=== PATIENT | female | born 1945 | race Caucasian/White ===

== ENCOUNTER → 2017-08-29 | Outpatient (CLI) | payer MEDICARE, OTHER ==
[~2017-08-29] MED LIST: ACE325 PO; ACET-1966 PO; ACY30T TP; ACYC5CRE6 TP; ALE10 PO; ALE70 PO; ALP25 PO; ALPR-448 PO; AMLO-99 PO; AMO250 PO; ASC500 PO; ASCO100T PO; ASPI-1471 PO; ASPI81TA94 PO; ATE50 PO; ATEN-1 PO; ATOR10TA65 PO; AZIT-1 PO; BACDS PO; BENZ100C4 PO; CEP500 PO; DILT240C4 PO; DILT300C41 PO; DILT360C49 PO; DUL20 PO; DULO30CA6 PO; FLU45SYR17 IM; FLU45SYR25 IM ONLY; FOLTX PO; FURO-1 PO; GABA-549 PO; HYDR-2946 PO; HYDR-2966 PO; HYDR-385 PO; HYDR-4309 PO; HYDR-6018 TP; IBUP-56 PO; IRO150 PO; LEV75 PO; LEVO-3 PO; LEVO100T95 PO; LIDO10VI16 INSYN; LOR5/325 PO; LOSA100T67 PO; LOSA100T68 PO; MAGN250T29 PO; MAGN250T34 PO; MET500 PO; METF-410 PO; METF-420 PO; MULT-820 PO; OLME40TA17 PO; OMEP-125 PO; OMEP40CA48 PO; ONDA8TAB91 PO; PER PO; PRA20 PO; PRAM15FO9 TP; PRED20TA6 PO; SPIR1TAB26 PO; SPIR1TAB28 PO; SPIR25TA78 PO; TRAM-420 PO; TRI40I IART; VENL37.53 PO; [UNRECOGNIZED DRUG - CODE] PO; [UNRECOGNIZED DRUG - CODE] PO; [UNRECOGNIZED DRUG - CODE] PO
[2017-08-29 11:02] LABS: PLATELET COUNT, AUTOMATED 333 K/uL (150-450)
--- NOTE | 2017-08-29 14:08 | RADIOLOGY IMAGING REPORT ---
FACILITY: [facility] PATIENT NAME: Crystal Herzog : 1945 MR: [id number] V: [id number] EXAM DATE: ORDERING PHYSICIAN: CAROLINE EDWARDS TECHNOLOGIST: Location: [facility] [place] Patient: Crystal Herzog : 1945 Visit/Account:[id number] Date of Sevice: 08/29/2017 Exam type: VENOUS DOPP LOW LEFT EXTREMITY History: Left knee pain and swelling Comparison: None. Findings: The left lower extremity veins were imaged including the left common femoral vein, greater saphenous vein, popliteal vein, posterior tibial vein, peroneal vein and anterior tibial veins revealing no christie dence of intraluminal thrombi. The veins were compressible and demonstrated normal augmentation. IMPRESSION: 1. No sonographic evidence DVT involving the left lower extremity veins Report Dictated By: Richelle Costello MD at 08/29/2017 2:03 PM Report E-Signed By: Richelle Costello MD at 08/29/2017 2:04 PM WSN:[email or web address]
== END ==
LOC: LAB 10:40
PROVIDERS: ATTEND Orthopaedic Surgery Hand Surgery
DX: M25.562 Pain in left knee (principal); M25.462 Effusion, left knee
CPT/HCPCS: 36415; 85025

== ENCOUNTER → 2017-09-06 | Outpatient (CLI) | payer MEDICARE, OTHER ==
[2017-09-06 09:39] LABS: PLATELET COUNT, AUTOMATED 297 K/uL (150-450)
[2017-09-06 10:24] LABS: LDL CHOLESTEROL 36 mg/dl
--- NOTE | 2017-09-09 12:26 | RADIOLOGY IMAGING REPORT ---
FACILITY: [facility] PATIENT NAME: BRIDGET CHASE : [id number] MR: [id number] V: [id number] EXAM DATE: ORDERING PHYSICIAN: CRUZITO IGNACIO TECHNOLOGIST: Kristen sOorio EXAMINATION:TWO-DIMENSIONAL ECHOCARDIOGRAPH REASON:LOWER EXTREMITY EDEMA 2D Measurements (normal values in centimeters) LV endLV endRV endVent.LV PostAorticLeftPercent DiastolicSystolicDiastolicSeptumWallRootAtriumShortening (3.5-5.7)(0.9-2.6)(0.6-1.1)(0.6-1.1)(2.0-3.7)(1.9-4.0)(25-35%) [id number] STROKE VOLUME: 57ml ESTIMATED EJECTION FRACTION:59% PARASTERNAL LONG AXIS: Overall left ventricular systolic function appears to be normal & chamber sizes also appear to be normal. Color examination of the valves revealed only a trace of mitral insufficiency in this view. Aortic valve & mitral valve were not seen well but appear to open normally. PARASTERNAL SHORT AXIS: Aortic valve is trileaflet in configuration & appears to open normally. Trace of pulmonic insufficiency is noted. The overall left ventricular systolic function appears to be normal. APICAL FOUR AND TWO CHAMBER: Normal left ventricular ejection fraction. The right ventricle also appears to contract normally. The color examination reveals a trace of mitral, aortic & pulmonic insufficiency present. Aortic valve area & mitral valve area both measure within normal ranges at 1.98 & 2.14cm2 respectively. The tricuspid regurgitation Vmax measured 2.92m/sec. Left atrial & right atrial volumes were measured within normal ranges at 22 &15ml/m2. TAPSE is measured at 1.8. SUBCOSTAL VIEW: No pericardial effusion was noted. No atrioseptal or ventriculoseptal defects were appreciated. Doppler examination of the mitral valve in diastole does reveal the A wave > E wave. IVC is normal in size. OVERALL IMPRESSION: 1. Normal left ventricular ejection fraction of 59% with a Grade 1/4 decrease in diastolic function. 2. There are normal chamber sizes. 3. No wall motion abnormalities are noted. 4. A trileaflet aortic valve with a trace of aortic insufficiency. 5. There is a trace amount of pulmonic insufficiency. 6. A trace amount of mitral insufficiency. No stenosis is noted. 7. A trace amount of tricuspid insufficiency with estimated right ventricular systolic pressures at the upper range of normal at 37mm Hg. 8. No other abnormalities were noted. Dictated by: Fanta Lorenz M.D. on 09/06/2017 at 12:57 Transcribed by: CHRISTO on 09/09/2017 at 11:15 Approved by: Fanta Lorenz M.D. on 09/09/2017 at 12:24 [facility]
== END ==
LOC: US 00:28
PROVIDERS: ATTEND Family Medicine
DX: I50.30 Unspecified diastolic (congestive) heart failure (principal); I35.1 Nonrheumatic aortic (valve) insufficiency; I37.1 Nonrheumatic pulmonary valve insufficiency; I07.1 Rheumatic tricuspid insufficiency; R60.0 Localized edema; E11.9 Type 2 diabetes mellitus without complications; E03.9 Hypothyroidism, unspecified; I10 Essential (primary) hypertension; E66.9 Obesity, unspecified; E78.00 Pure hypercholesterolemia, unspecified
CPT/HCPCS: 36415; 82040; 82247; 82310; 82374; 82435; 82465; 82565; 82947; 83036; 83718; 84075; 84132; 84155; 84295; 84443; 84450; 84460; 84478; 84520; 85025; 93306

== ENCOUNTER → 2018-02-07 | Outpatient (CLI) | payer MEDICARE, OTHER ==
[~2018-02-07] MED LIST changes: +ALPR-429 PO; +BIOT250012 PO; -METF-410 PO; +METF-411 PO; -SPIR25TA78 PO; +SPIR25TA80 PO
== END ==
LOC: LAB 09:11
PROVIDERS: ATTEND Emergency Medicine
DX: E11.9 Type 2 diabetes mellitus without complications (principal); G62.9 Polyneuropathy, unspecified
CPT/HCPCS: 36415; 82607; 83036

== ENCOUNTER → 2018-05-05 | Outpatient (CLI) | payer MEDICARE, OTHER ==
[~2018-05-05] MED LIST changes: +AMLO-113 PO; -AMLO-99 PO; +CYAN20004 PO; -HYDR-4309 PO; +HYDR-653 PO; -LOSA100T67 PO; +LOSA100T69 PO; -METF-411 PO; +METF-450 PO; +SITA50TA6 PO
== END ==
LOC: LAB 15:57
PROVIDERS: ATTEND Emergency Medicine
DX: E11.9 Type 2 diabetes mellitus without complications (principal); E53.8 Deficiency of other specified B group vitamins
CPT/HCPCS: 36415; 82607; 83036

== ENCOUNTER 2018-05-28 14:24 | Emergency (ER) | payer MEDICARE, OTHER ==
[~2018-05-28 14:24] MED LIST changes: +CYA1000 PO
--- NOTE | 2018-05-28 14:38 | ER Report ---
History and Physical Time Seen By MD: 14:37 Hx. of Stated Complaint: anxiety, chest pain, shaking. HPI/ROS CHIEF COMPLAINT: Anxiety chest pain HISTORY OF PRESENT ILLNESS: 73-year-old female suffers from anxiety and hypert ension comes in with a blood pressure 171/101 patient states that this is high for her since she didn't check Throughout the day has been noting getting higher also says she feels shaky short of breath and feels that she's having a panic attack which she has had numerous in the past patient had a mild episode of chest pain and not associated lasted several minutes and subsequently resolved without intervention patient's currently chest pain-free at this time patient says she feels shaky jittery and feels very anxious last bowel movement was yesterday where she's had a small bowel movement but she has no abdominal pain or discomfort no nausea vomiting or diarrhea no additional complaints noted a mild nonproductive cough for the last couple weeks REVIEW OF SYSTEMS: Respiratory: Cough no shortness of breath Cardiovascular: Chest pain has resolved otherwise unremarkable Gastrointestinal: No vomiting, no abdominal pain. Musculoskeletal: No back pain. Remainder of the 14 system rev: Yes Allergies: Coded Allergies: piroxicam (Verified Allergy, Severe, SWELLING, RASH, 06/18/12) amlodipine (Verified Allergy, Intermediate, Leg swelling, 09/10/17) azithromycin (Unverified Allergy, Mild, headache, 01/15/14) cephalexin (Verified Allergy, Mild, 01/15/14) acetaminophen (Verified Adverse Reaction, Severe, 03/07/16) hydrocodone (Verified Adverse Reaction, Severe, 03/07/16) lorcaserin (Unverified Adverse Reaction, Intermediate, Dizzy, loss of balance, 01/27/14) aspirin (Unverified Adverse Reaction, Mild, Nosebleeds, 01/27/14) clarithromycin (Verified Adverse Reaction, Unknown, 06/18/12) Uncoded Allergies: CANTALOPE (Allergy, Intermediate, ITHCHY THROAT, 07/14/12) CRAB (Allergy, Intermediate, RASH, 07/14/12) Home Meds Active Scripts Sitagliptin Phosphate (JANUVIA) 50 Mg Tablet, 50 MG PO QDAY, #90 TAB 0 Refills Prov:PATRICIA TAVARES MD 05/07/18 Hydrochlorothiazide (HYDROCHLOROTHIAZIDE) 25 Mg Tablet, 1 TAB PO QDAY, #30 TAB 11 Refills Prov:PATRICIA TAVARES MD 05/07/18 Losartan Potassium (LOSARTAN POTASSIUM) 100 Mg Tablet, 1 TAB PO QDAY, #90 TAB 3 Refills Prov:PATRICIA TAVARES MD 02/28/18 Atorvastatin Calcium (ATORVASTATIN CALCIUM) 10 Mg Tablet, 1 TAB PO QDAY, #90 TAB 3 Refills TAKE ONE TABLET BY MOUTH ONCE A DAY AT BED TIME Prov:PATRICIA TAVARES MD 02/28/18 Alprazolam (XANAX) 0.5 Mg Tablet, 1 TAB PO PRN for Anxiety, #30 TAB Prov:PATRICIA TAVARES MD 02/07/18 Levothyroxine Sodium (LEVOTHYROXINE SODIUM) 100 Mcg Tablet, 1 TAB PO QDAY, #90 TAB 4 Refills Prov:CRUZITO IGNACIO MD 12/10/17 Metformin Hcl (METFORMIN HCL) 500 Mg Tablet, 2 TAB PO BID for 90 Days, #360 TAB 4 Refills Prov:CRUZITO IGNACIO MD 09/04/17 Diltiazem Hcl (DILTIAZEM 24HR CD) 240 Mg Cap.er.24h, 1 CAP PO DAILY for 90 Days, #90 CAP.SR.24H 4 Refills Prov:CRUZITO IGNACIO MD 09/02/17 Reported Medications Cyanocobalamin (Vitamin B-12) (VITAMIN B-12) 1,000 Mcg Tablet, 1000 MCG PO DAILY 05/09/18 Aspirin (ASPIR 81) 81 Mg Tablet.dr, 81 MG PO QDAY, TAB 02/07/18 Biotin (BIOTIN) 2,500 Mcg Capsule, 5000 MCG PO DAILY, CAPSULE 10/15/17 Magnesium Oxide (MAGNESIUM) 250 Mg Tablet, 250 MG PO 07/09/14 Cholecalciferol (Vitamin D3) (VITAMIN D3) 1,000 Unit Tablet, 1000 UNIT PO DAILY 07/14/12 Multivitamins (Multivitamin) 1 Tab Tablet, 1 TAB PO QDAY 07/07/10 Reviewed Nurses Notes: Yes Old Medical Records Reviewed: Yes Hx Smoking: No Smoking Status: Never Smoker Hx Substance Use Disorder: No Hx Alcohol Use: No Constitutional Vital Sign - Last 24 Hours 05/28/18 14:32 Temp 98.1 Pulse 78 Resp 22 B/P (MAP) 178/101 Pulse Ox 95 O2 Delivery Room Air Physical Exam General Appearance: The patient is alert, has no immediate need for airway protection and no current signs of toxicity. [ ] Eyes: Pupils equal and round no injection. Respiratory: Chest is non tender, lungs are clear to auscultation. Cardiac: regular rate and rhythm [ ] Gastrointestinal: Abdomen is soft and non tender, no masses, bowel sounds normal. Musculoskeletal: Neck: Neck is supple and non tender. Extremities have full range of motion and are non tender. Skin: No rashes or lesions. [ ] DIFFERENTIAL DIAGNOSIS: After history and physical exam differential diagnosis was considered for anxiety panic attack chest pain pulmonary emboli myocardial infarction upper respiratory infection Medical Decision Making Data Points Result Diagram: 05/28/18 1444 05/28/18 1444 Laboratory Hematology Test 05/28/18 14:44 05/28/18 14:49 Red Blood Count 5.01 M/uL (4.17-5.56) Mean Corpuscular Volume 88.1 fL (80.0-96.0) Mean Corpuscular Hemoglobin 29.0 pg (26.0-33.0) Mean Corpuscular Hemoglobin Concent 33.0 g/dL (32.0-36.0) Red Cell Distribution Width 15.2 % (11.5-14.5) Mean Platelet Volume 7.9 fL (7.2-11.1) Neutrophils (%) (Auto) 68.6 % (39.4-72.5) Lymphocytes (%) (Auto) 20.7 % (17.6-49.6) Monocytes (%) (Auto) 6.3 % (4.1-12.4) Eosinophils (%) (Auto) 3.5 % (0.4-6.7) Basophils (%) (Auto) 0.9 % (0.3-1.4) Nucleated RBC Relative Count (auto) 0.1 /100WBC Neutrophils # (Auto) 6.4 K/uL (2.0-7.4) Lymphocytes # (Auto) 1.9 K/uL (1.3-3.6) Monocytes # (Auto) 0.6 K/uL (0.3-1.0) Eosinophils # (Auto) 0.3 K/uL (0.0-0.5) Basophils # (Auto) 0.1 K/uL (0.0-0.1) Nucleated RBC Absolute Count (auto) 0.01 K/uL D-Dimer Quantitative (PE/DVT) 0.39 ug/ml (0-0.50) Sodium Level 140 mmol/L (137-145) Potassium Level 3.3 mmol/L (3.5-5.0) Chloride Level 100 mmol/L (98-107) Carbon Dioxide Level 27 mmol/L (22-31) Blood Urea Nitrogen 17 mg/dl (7-18) Creatinine 0.60 mg/dl (0.52-1.04) Glomerular Filtration Rate Calc > 60.0 Random Glucose 194 mg/dl (75-110) Calcium Level 9.8 mg/dl (8.4-10.2) Total Bilirubin 0.4 mg/dl (0.2-1.3) Aspartate Amino Transf (AST/SGOT) 23 U/L (0-35) Alanine Aminotransferase (ALT/SGPT) 19 U/L (0-56) Alkaline Phosphatase 63 U/L (0-126) Troponin I < 0.012 ng/ml B-Type Natriuretic Peptide 96 pg/ml (0-100) Total Protein 7.7 g/dl (6.3-8.2) Albumin 4.5 g/dl (3.5-5.0) Urine Color Colorless Urine Clarity Clear Urine pH 7.0 pH (4.8-9.5) Urine Specific [place] 1.003 Urine Protein Negative mg/dL (NEGATIVE) Urine Glucose (UA) Negative mg/dL (NEGATIVE) Urine Ketones Negative mg/dL (NEGATIVE) Urine Blood Negative (NEGATIVE) Urine Nitrite Negative (NEGATIVE) Urine Bilirubin Negative (NEGATIVE) Urine Urobilinogen Negative mg/dL (0.2-1.9) Urine Leukocyte Esterase Negative (NEGATIVE) Urine RBC None /HPF (0-2/HPF) Urine WBC None /HPF (0-5/HPF) Urine Squamous Epithelial Cells Few /LPF (</=FEW) Urine Bacteria Negative /HPF (NONE-FEW) Urine Mucus None /HPF (NONE-FEW) Chemistry Test 05/28/18 14:44 05/28/18 14:49 White Blood Count 9.3 k/uL (4.5-11.0) Red Blood Count 5.01 M/uL (4.17-5.56) Hemoglobin 14.5 g/dL (12.0-16.0) Hematocrit 44.1 % (34.0-47.0) Mean Corpuscular Volume 88.1 fL (80.0-96.0) Mean Corpuscular Hemoglobin 29.0 pg (26.0-33.0) Mean Corpuscular Hemoglobin Concent 33.0 g/dL (32.0-36.0) Red Cell Distribution Width 15.2 % (11.5-14.5) Platelet Count 269 K/uL (150-450) Mean Platelet Volume 7.9 fL (7.2-11.1) Neutrophils (%) (Auto) 68.6 % (39.4-72.5) Lymphocytes (%) (Auto) 20.7 % (17.6-49.6) Monocytes (%) (Auto) 6.3 % (4.1-12.4) Eosinophils (%) (Auto) 3.5 % (0.4-6.7) Basophils (%) (Auto) 0.9 % (0.3-1.4) Nucleated RBC Relative Count (auto) 0.1 /100WBC Neutrophils # (Auto) 6.4 K/uL (2.0-7.4) Lymphocytes # (Auto) 1.9 K/uL (1.3-3.6) Monocytes # (Auto) 0.6 K/uL (0.3-1.0) Eosinophils # (Auto) 0.3 K/uL (0.0-0.5) Basophils # (Auto) 0.1 K/uL (0.0-0.1) Nucleated RBC Absolute Count (auto) 0.01 K/uL D-Dimer Quantitative (PE/DVT) 0.39 ug/ml (0-0.50) Glomerular Filtration Rate Calc > 60.0 Calcium Level 9.8 mg/dl (8.4-10.2) Total Bilirubin 0.4 mg/dl (0.2-1.3) Aspartate Amino Transf (AST/SGOT) 23 U/L (0-35) Alanine Aminotransferase (ALT/SGPT) 19 U/L (0-56) Alkaline Phosphatase 63 U/L (0-126) Troponin I < 0.012 ng/ml B-Type Natriuretic Peptide 96 pg/ml (0-100) Total Protein 7.7 g/dl (6.3-8.2) Albumin 4.5 g/dl (3.5-5.0) Urine Color Colorless Urine Clarity Clear Urine pH 7.0 pH (4.8-9.5) Urine Specific [place] 1.003 Urine Protein Negative mg/dL (NEGATIVE) Urine Glucose (UA) Negative mg/dL (NEGATIVE) Urine Ketones Negative mg/dL (NEGATIVE) Urine Blood Negative (NEGATIVE) Urine Nitrite Negative (NEGATIVE) Urine Bilirubin Negative (NEGATIVE) Urine Urobilinogen Negative mg/dL (0.2-1.9) Urine Leukocyte Esterase Negative (NEGATIVE) Urine RBC None /HPF (0-2/HPF) Urine WBC None /HPF (0-5/HPF) Urine Squamous Epithelial Cells Few /LPF (</=FEW) Urine Bacteria Negative /HPF (NONE-FEW) Urine Mucus None /HPF (NONE-FEW) Coagulation Test 05/28/18 14:44 D-Dimer Quantitative (PE/DVT) 0.39 ug/ml Urinalysis Test 05/28/18 14:49 Urine Color Colorless Urine Clarity Clear Urine pH 7.0 pH (4.8-9.5) Urine Specific [place] 1.003 Urine Protein Negative mg/dL (NEGATIVE) Urine Glucose (UA) Negative mg/dL (NEGATIVE) Urine Ketones Negative mg/dL (NEGATIVE) Urine Blood Negative (NEGATIVE) Urine Nitrite Negative (NEGATIVE) Urine Bilirubin Negative (NEGATIVE) Urine Urobilinogen Negative mg/dL (0.2-1.9) Urine Leukocyte Esterase Negative (NEGATIVE) Urine RBC None /HPF (0-2/HPF) Urine WBC None /HPF (0-5/HPF) Urine Squamous Epithelial Cells Few /LPF (</=FEW) Urine Bacteria Negative /HPF (NONE-FEW) Urine Mucus None /HPF (NONE-FEW) ED Course/Re-evaluation ED Course ED clinical course medical decision making 73-year-old female comes emergency Department with a complaint of panic attack her EKG chest x-ray baseline labs including cardiac markers all negative she's had no pain on arrival no pain since she's been here with a milligram of Ativan her symptoms of completely resolved she's been intermittently on benzodiazepines for anxiety and control of her panic attack a long discussion with her about the frequency of this she had been recently taken off of daily when necessary dosing with exacerbation dosing as well will encourage her she has some at home and I'll give her a prescription for a couple days worth to resume her benzodiazepine mild dose for control and have her follow-up with primary care diagnosis panic attack Decision to Disposition Date: May 28, 2018 Decision to Disposition Time: 16:13 Depart Departure Latest Vital Signs Vital Signs Date Time Temp Pulse Resp B/P (MAP) Pulse Ox O2 Delivery O2 Flow Rate FiO2 05/28/18 14:32 98.1 78 22 178/101 95 Room Air Impression: Primary Impression: Panic attack Condition: Improved Disposition: HOME OR SELF-CARE Referrals: PATRICIA TAVARES MD (PCP) 2 Days Patient Instructions: Panic Attack (ED), Panic Disorder (DC) MIGUEL A MONTANEZ MD May 28, 2018 14:38
[2018-05-28] MEDS ORDERED: LORazepam 2 MG/ML VIAL IVP ONE (14:40)
--- NOTE | 2018-05-28 14:42 | EKG ---
FACILITY: [facility] PATIENT NAME: BRIDGET CHASE : [id number] MR: [id number] V: [id number] EXAM DATE: ORDERING PHYSICIAN: MIGUEL A MONTANEZ TECHNOLOGIST: LIDIA Connors Reason : CARDIAC Blood Pressure : / mmHG Vent. Rate : 071 BPM Atrial Rate : 071 BPM P-R Int : 162 ms QRS Dur : 086 ms QT Int : 396 ms P-R-T Axes : -11 -20 063 degrees QTc Int : 430 ms Sinus rhythm Left axis Artifact in several leads - repeat ifd needed Abnormal ECG Confirmed by YOLI RANDOLPH ([id number]) on 05/28/2018 4:02:28 PM Referred By: TARIK Confirmed By:YOLI RANDOLPH
[2018-05-28 14:55] LABS: PLATELET COUNT, AUTOMATED 269 K/uL (150-450)
[2018-05-28] MEDS ORDERED: cloNIDine HCL 0.1 MG TAB PO ONE (15:05)
--- NOTE | 2018-05-28 16:07 | RADIOLOGY IMAGING REPORT ---
FACILITY: [facility] [place] PATIENT NAME: Crystal Herzog : 1945 MR: [id number] V: [id number] EXAM DATE: ORDERING PHYSICIAN: MIGUEL A MONTANEZ TECHNOLOGIST: Location: [facility] Patient: Crystal Herzog : 1945 Visit/Account:[id number] Date of Sevice: 05/28/2018 2 VIEWS CHEST INDICATION: Chest pain and bloating COMPARISON: Examination chest July 09, 2012 FINDINGS: Heart size within normal limits. Lungs are clear without focal infiltrate, failure, effusion or pneumothorax. No evidence of acute bon y finding. ] IMPRESSION: 1. No acute cardiopulmonary process. Report Dictated By: Miguel A Weinstein MD at 05/28/2018 4:02 PM Report E-Signed By: Miguel A Weinstein MD at 05/28/2018 4:03 PM WSN:[email or web address]
--- NOTE | 2018-05-28 16:09 | RADIOLOGY IMAGING REPORT ---
FACILITY: [facility] PATIENT NAME: Crystal Herzog : 1945 MR: [id number] V: [id number] EXAM DATE: ORDERING PHYSICIAN: MIGUEL A MONTANEZ TECHNOLOGIST: Location: [facility] - [place], [place] Patient: Crystal Herzog : 1945 Visit/Account:[id number] Date of Sevice: 05/28/2018 KUB SINGLE VIEW ABDOMEN HISTORY: pain and bloating COMPARISON: None. FINDINGS: Limited by body habitus. Nonobstructive pattern without evidence of free air or pneumatosis. Moderate amount of colonic stool. Levoscoliotic curvature with multilevel spondylosis most notable lower lumb ar spine. No acute bony finding. IMPRESSION: Nonobstructive bowel pattern. No evidence of acute pathology. Report Dictated By: Miguel A Weinstein MD at 05/28/2018 4:03 PM Report E-Signed By: Miguel A Weinstein MD at 05/28/2018 4:05 PM WSN:[email or web address]
[2018-05-28 16:15] VITALS: BP 129/75
[2018-05-30] MEDS ORDERED: SPIR25TA80 PO (11:01)
[2018-05-30] MEDS ORDERED: HYDR-2966 PO (11:01)
== END 2018-05-28 16:20 | disposition home or self-care (01) ==
LOC: ER 14:54
DX: F41.0 Panic disorder [episodic paroxysmal anxiety] (principal)
CPT/HCPCS: 71046; 74018; 81001; 83880; 84484; 85025; 85379; 93005; 96374; 99284; J2060; 82040; 82247; 82310; 82374; 82435; 82565; 82947; 84075; 84132; 84155; 84295; 84450; 84460; 84520

== ENCOUNTER 2018-06-30 10:16 | Outpatient (RCR) | payer MEDICARE, OTHER ==
[~2018-06-30 10:16] MED LIST changes: -AMLO-113 PO; +AMLO-127 PO; -LOSA100T69 PO; +LOSA100T75 PO
--- NOTE | 2018-06-30 15:10 | RADIOLOGY IMAGING REPORT ---
FACILITY: [facility] PATIENT NAME: Crystal Herzog : 1945 MR: [id number] V: [id number] EXAM DATE: ORDERING PHYSICIAN: PATRICIA TAVARES TECHNOLOGIST: Location: [facility] [place] Patient: Crystal Herzog : 1945 Visit/Account:[id number] Date of Sevice: 06/30/2018 Exam type: US VENOUS LOWER EXT LT History: leg pain Comparison: August 29, 2017. Findings: The left lower extremity veins were imaged including the left common femoral vein, greater saphenous vein, superficial femoral vein, popliteal vein, posterior tibial vein, peroneal vein and anterior tib ial vein revealing no evidence of intraluminal thrombi. The veins were compressible and demonstrated augmentation. Incidentally noted is a 4.4 x 2 x 1.6 cm complex fluid collection in the left popliteal fossa IMPRESSION: 1. No sonographic evidence DVT involving the left lower extremity veins Probable left popliteal cyst Report Dictated By: Richelle Costello MD at 06/30/2018 3:04 PM Report E-Signed By: Richelle Costello MD at 06/30/2018 3:06 PM WSN:[email or web address]
[2018-06-30] MEDS ORDERED: TRAM-420 PO (15:28)
--- NOTE | 2018-07-03 17:13 | RADIOLOGY IMAGING REPORT ---
FACILITY: [facility] [place] PATIENT NAME: BRIDGET CHASE : [id number] MR: [id number] V: [id number] EXAM DATE: ORDERING PHYSICIAN: PATRICIA TAVARES TECHNOLOGIST: Mily Zhou PROCEDURE:BILATERAL DIGITAL SCREENING MAMMOGRAM WITH CAD ASSISTED INTERPRETATION & 3D TOMOSYNTHESIS COMPARISON:Prior mammograms 05/29/17, 04/10/16, 04/05/15, 03/30/14, 03/23/13, 03/19/12. INDICATIONS:SCREENING FINDINGS: The breasts are almost entirely fatty. The parenchymal pattern has remained stable allowing for difference in mammographic technique & patient positioning. DIAGNOSTIC CATEGORY 1--NEGATIVE. RECOMMENDATIONS: ROUTINE MAMMOGRAM AND CLINICAL EVALUATION. IMPRESSION: BIRADS 1: Negative. No significant abnormality is seen. Dictated by: Richelle Costello M.D. on 07/02/2018 at 15:50 Transcribed by: NILTON on 07/02/2018 at 16:04 Approved by: Richelle Costello M.D. on 07/03/2018 at 17:12 [facility]
== END 2018-07-02 18:00 | disposition home or self-care (01) ==
LOC: US 10:16 → EDSTATUS 07-02 10:15 → US 07-02 18:00
PROVIDERS: ATTEND Emergency Medicine
DX: Z12.31 Encounter for screening mammogram for malignant neoplasm of breast (principal); M79.605 Pain in left leg
CPT/HCPCS: 77063; 77067

== ENCOUNTER → 2018-12-30 | Outpatient (CLI) | payer MEDICARE, OTHER ==
[~2018-12-30] MED LIST changes: -OMEP-125 PO; +OMEP-126 PO; +SULF-198 PO
[2018-12-30 08:45] LABS: PLATELET COUNT, AUTOMATED 385 K/uL (150-450)
[2018-12-30 09:24] LABS: LDL CHOLESTEROL 65 mg/dl
== END ==
LOC: LAB 08:24
PROVIDERS: ATTEND Emergency Medicine
DX: I10 Essential (primary) hypertension (principal); E11.9 Type 2 diabetes mellitus without complications; E03.9 Hypothyroidism, unspecified
CPT/HCPCS: 36415; 82040; 82247; 82310; 82374; 82435; 82465; 82565; 82947; 83036; 83718; 84075; 84132; 84155; 84295; 84443; 84450; 84460; 84478; 84520; 85025